=== PATIENT | female | born 1940 | race Caucasian/White ===

== ENCOUNTER 2019-08-07 16:36 | Inpatient (IN) | payer MEDICARE ==
[~2019-08-07] VITALS: Ht 172.7 cm; Wt 111.4 kg
[~2019-08-07 16:36] MED LIST: ASPI-515 PO; ATOR10TA9 PO; CLOP75TA PO
--- NOTE | 2019-08-07 17:32 | NUR ---
TICO. REPORT RECEIVED FROM EMS. PT'S FAMILY MEMBER NOTICED PT HAS STROKE LIKE SYMPTOMS SINCE 12PM TODAY. PT STATES " I DON'T FEEL RIGHT ABOUT 2 DAYS." FACIAL SYMMETRICAL, NEURO INTACT. PT HAS EXPRESSIVE APHASIA. HX OF STROKE 3 YEARS AGO. RIGHT SIDED WEAKNESS D/T STROKE. PT'S AOX2. RESPS EVEN AND UNLABORED. EDMD AT BEDSIDE TO EVALUATE AT THIS TIME.
--- NOTE | 2019-08-07 17:33 | NUR ---
PT AMB TO BR WITH STEADY GAIT.
--- NOTE | 2019-08-07 17:53 | NUR ---
EKG DONE AT BEDSIDE BY EMT.
--- NOTE | 2019-08-07 17:56 | NUR ---
PT MEDICATED PER EMAR. PT TOLERATED WELL.
[2019-08-07] MEDS ORDERED: SODIUM CHLORIDE FLUSH 10ML SYR IVF ONE (18:00)
--- NOTE | 2019-08-07 18:11 | NUR ---
PT'S STRAIGHT CATH'D USING STERILE TECHNIQUE. PT TOLERATED WELL. THIS RN WALKED TO LAB FOR UA.
[2019-08-07 18:13] LABS: ALANINE AMINOTRANSFERASE 13 U/L (12-78); ALBUMIN 3.5 g/dL (3.4-5.0); ANION GAP 7 mmol/L (5-15); CALCIUM 8.3 mg/dL (8.5-10.1); CHLORIDE 111 mmol/L (98-107)
[2019-08-07 18:15] LABS: ALKALINE PHOSPHATASE 95 U/L (45-117); BILIRUBIN,TOTAL 0.5 mg/dL (0.2-1.0); CREATININE 0.87 mg/dL (0.55-1.02); TOTAL PROTEIN 7.3 g/dL (6.4-8.2)
[2019-08-07 18:17] LABS: MICROSCOPIC NOT IND
[2019-08-07 18:21] LABS: CULTURE INDICATED? NO
[2019-08-07 18:35] LABS: MEAN CORPUSCULAR HEMOGLOBIN 23.9 pg (27.0-34.8); MEAN CORPUSCULAR HGB CONC 31.2 g/dL (32.4-35.8); MEAN CORPUSCULAR VOLUME 76.7 fL (80-100); MEAN PLATELET VOLUME 8.4 fL (7.4-10.4); PLATELET COUNT 389 x10^3/uL (130-400); RED BLOOD COUNT 4.66 x10^6/uL (3.82-5.3); RED CELL DISTRIBUTION WIDTH 17.9 % (9.6-15.2)
[2019-08-07 18:36] LABS: BASOPHILS # (AUTO) 0.02 x10^3/uL (0-0.1); BASOPHILS % (AUTO) 0 % (0-1); EOSINOPHILS # (AUTO) 0.36 x10^3/uL (0-0.4); EOSINOPHILS % (AUTO) 5 % (1-7); LYMPHOCYTES # (AUTO) 1.48 x10^3/uL (1-3.4); LYMPHOCYTES % (AUTO) 19 % (22-44); MD MORPH REVIEW ONLY; MONOCYTES # (AUTO) 0.55 x10^3/uL (0.2-0.8); MONOCYTES % (AUTO) 7 % (2-9); NEUTROPHILS # (AUTO) 5.48 x10^3/uL (1.8-6.8); NEUTROPHILS % (AUTO) 70 % (42-75)
[2019-08-07 18:37] LABS: ANISOCYTOSIS 1+; HYPOCHROMIA 1+; MICROCYTOSIS 1+; OVALOCYTES 1+
[2019-08-07 18:38] LABS: <PLATELET ESTIMATE> ADEQUATE; <PLT MORPHOLOGY> NORMAL PLT MORPH
--- NOTE | 2019-08-07 18:51 | NUR ---
REPORT GIVEN TO DAVID BUTCHER.
[2019-08-07] MEDS ORDERED: LABETALOL 5MG/ML, 20ML IVPush ONE (19:30)
[2019-08-07] MEDS ORDERED: LABETALOL 5MG/ML, 20ML ONE (19:58)
[2019-08-07] MEDS ORDERED: ASPIRIN 81 MG TABLET CHEW ONE (19:59)
[2019-08-07] MEDS ORDERED: SODIUM CHLORIDE FLUSH 10ML SYR IVF PRN (20:00)
[2019-08-07] MEDS ORDERED: ASPIRIN 81 MG TABLET CHEW PO ONE (20:00)
[2019-08-07] MEDS ORDERED: BISACODYL 10 MG SUPP PR PRN (21:30)
[2019-08-07] MEDS ORDERED: TRAZODONE 50MG TABLET PO PRN (21:30)
[2019-08-07] MEDS ORDERED: ONDANSETRON 2MG/ML, 2ML IVPush PRN (21:30)
[2019-08-07] MEDS ORDERED: ACETAMINOPHEN 650 MG/20.3 ML UDC PO PRN (21:30)
--- NOTE | 2019-08-07 21:52 | NUR ---
PT RESTING IN BED IN SITTING POSITION, PT FAMILY WENT HOME. PT VITALS ARE BEING MONITORED. PT DENIED ANY NEEDS AT THIS TIME.
[2019-08-07 23:03] VITALS: BP 149/77
[2019-08-07] MEDS: ATORVASTATIN 40 MG TABLET PO SCH (23:10)
[2019-08-07] MEDS ORDERED: OMNIPAQUE 350 MG/ML, 100ML BOTTLE ONE (23:16)
[2019-08-08 04:00] VITALS: BP 130/62
[2019-08-08 05:41] LABS: BASOPHILS # (AUTO) 0.05 x10^3/uL (0-0.1); BASOPHILS % (AUTO) 1 % (0-1); EOSINOPHILS # (AUTO) 0.31 x10^3/uL (0-0.4); EOSINOPHILS % (AUTO) 4 % (1-7); LYMPHOCYTES # (AUTO) 1.33 x10^3/uL (1-3.4); LYMPHOCYTES % (AUTO) 18 % (22-44); MD NO; MEAN CORPUSCULAR HGB CONC 31.6 g/dL (32.4-35.8); MEAN CORPUSCULAR VOLUME 76.1 fL (80-100); MEAN PLATELET VOLUME 8.9 fL (7.4-10.4); MONOCYTES # (AUTO) 0.69 x10^3/uL (0.2-0.8); MONOCYTES % (AUTO) 9 % (2-9); NEUTROPHILS # (AUTO) 4.98 x10^3/uL (1.8-6.8); NEUTROPHILS % (AUTO) 68 % (42-75); PLATELET COUNT 359 x10^3/uL (130-400); RED BLOOD COUNT 4.25 x10^6/uL (3.82-5.3); RED CELL DISTRIBUTION WIDTH 17.4 % (9.6-15.2)
[2019-08-08 05:49] LABS: ANION GAP 5 mmol/L (5-15); CALCIUM 8.1 mg/dL (8.5-10.1); CHLORIDE 111 mmol/L (98-107); CREATININE 0.84 mg/dL (0.55-1.02)
[2019-08-08 05:50] LABS: CHOLESTEROL, TOTAL 149 mg/dL (140-239); TRIGLYCERIDES 102 mg/dL (50-200); VLDL CHOLESTEROL 20 mg/dL (0-25)
[2019-08-08 05:52] LABS: CHOL/HDL RATIO 3.2; HDL CHOL % 31 % (28-40); HDL CHOLESTEROL (DIRECT) 46 mg/dL (40-60); LDL CHOLESTEROL,CALCULATED 83 mg/dL (54-169); LDL/HDL RATIO 1.8 (0.5-3.0)
[2019-08-08 08:19] VITALS: BP 122/73
[2019-08-08] MEDS: ASPIRIN 81 MG TABLET CHEW PO/NG SCH (08:48)
[2019-08-08 12:03] VITALS: BP 152/77
[2019-08-08 17:16] VITALS: BP 158/70
[2019-08-08 19:41] VITALS: BP 146/76
[2019-08-08] MEDS: ATORVASTATIN 40 MG TABLET PO SCH (20:10)
[2019-08-08] MEDS: LISINOPRIL 5 MG TABLET PO SCH (22:02)
[2019-08-08 23:55] VITALS: BP 169/66
[2019-08-09 04:20] VITALS: BP 138/76
[2019-08-09 05:15] LABS: BASOPHILS # (AUTO) 0.06 x10^3/uL (0-0.1); BASOPHILS % (AUTO) 1 % (0-1); EOSINOPHILS # (AUTO) 0.35 x10^3/uL (0-0.4); EOSINOPHILS % (AUTO) 4 % (1-7); LYMPHOCYTES # (AUTO) 1.79 x10^3/uL (1-3.4); LYMPHOCYTES % (AUTO) 21 % (22-44); MD NO; MEAN CORPUSCULAR HGB CONC 31.4 g/dL (32.4-35.8); MEAN CORPUSCULAR VOLUME 76.5 fL (80-100); MEAN PLATELET VOLUME 8.4 fL (7.4-10.4); MONOCYTES # (AUTO) 0.75 x10^3/uL (0.2-0.8); MONOCYTES % (AUTO) 9 % (2-9); NEUTROPHILS # (AUTO) 5.62 x10^3/uL (1.8-6.8); NEUTROPHILS % (AUTO) 66 % (42-75); PLATELET COUNT 386 x10^3/uL (130-400); RED BLOOD COUNT 4.53 x10^6/uL (3.82-5.3); RED CELL DISTRIBUTION WIDTH 17.9 % (9.6-15.2)
[2019-08-09 05:24] LABS: ANION GAP 8 mmol/L (5-15); CALCIUM 8.5 mg/dL (8.5-10.1); CHLORIDE 111 mmol/L (98-107)
[2019-08-09 05:27] LABS: CREATININE 0.76 mg/dL (0.55-1.02)
[2019-08-09 07:00] VITALS: BP 144/78
[2019-08-09] MEDS: LISINOPRIL 5 MG TABLET PO SCH (09:55)
[2019-08-09] MEDS: ASPIRIN 81 MG TABLET CHEW PO/NG SCH (09:55)
[2019-08-09 13:06] VITALS: BP 136/73
[2019-08-09 16:59] VITALS: BP 154/70
[2019-08-09 20:30] VITALS: BP 167/76
[2019-08-09] MEDS: LISINOPRIL 10 MG TABLET PO SCH (21:20)
[2019-08-09] MEDS: ATORVASTATIN 40 MG TABLET PO SCH (21:20)
[2019-08-10] VITALS: BP 147/83
[2019-08-10 04:00] VITALS: BP 130/74
[2019-08-10 07:33] VITALS: BP 142/70
[2019-08-10] MEDS: ASPIRIN 81 MG TABLET CHEW PO/NG SCH (08:10)
[2019-08-10] MEDS: LISINOPRIL 10 MG TABLET PO SCH (08:10)
[2019-08-10] MEDS ORDERED: LISI-167 PO (11:04)
[2019-08-10] MEDS ORDERED: ATOR40TA78 PO (11:04)
[2019-08-10] MEDS ORDERED: FLU VACC QS2019-20 36MOS UP/PF 0.5 ML IM-VACC ONE (12:30)
== END 2019-08-10 14:10 | disposition home health service (06) | DRG 66 ==
LOC: ED 20:12 → EDIP 20:54 → 4EST 22:45 → DCLOUNGE 08-10 13:50
PROVIDERS: ADMIT Internal Medicine; ATTEND Hospitalist
PROC: 0T9B70Z Drainage of Bladder with Drainage Device, Via Natural or Artificial Opening (ICD-10-PCS; principal; 2019-08-07)
PROC: B3111ZZ Fluoroscopy of Right Brachiocephalic-Subclavian Artery using Low Osmolar Contrast (ICD-10-PCS; 2019-08-07)
PROC: B31G1ZZ Fluoroscopy of Bilateral Vertebral Arteries using Low Osmolar Contrast (ICD-10-PCS; 2019-08-07)
PROC: B3121ZZ Fluoroscopy of Left Subclavian Artery using Low Osmolar Contrast (ICD-10-PCS; 2019-08-07)
PROC: B3181ZZ Fluoroscopy of Bilateral Internal Carotid Arteries using Low Osmolar Contrast (ICD-10-PCS; 2019-08-07)
PROC: B31C1ZZ Fluoroscopy of Bilateral External Carotid Arteries using Low Osmolar Contrast (ICD-10-PCS; 2019-08-07)
PROC: B3151ZZ Fluoroscopy of Bilateral Common Carotid Arteries using Low Osmolar Contrast (ICD-10-PCS; 2019-08-07)
DX: I63.312 Cerebral infarction due to thrombosis of left middle cerebral artery (principal); R47.01 Aphasia; D50.9 Iron deficiency anemia, unspecified; E66.01 Morbid (severe) obesity due to excess calories; I65.22 Occlusion and stenosis of left carotid artery; R23.3 Spontaneous ecchymoses; I16.0 Hypertensive urgency; Z75.1 Person awaiting admission to adequate facility elsewhere; Z86.73 Personal history of transient ischemic attack (TIA), and cerebral infarction without residual deficits; Z68.37 Body mass index [BMI] 37.0-37.9, adult; Z87.891 Personal history of nicotine dependence
CPT/HCPCS: 36415; 70450; 70496; 70498; 70551; 71045; 80048; 80053; 80061; 81003; 83880; 85025; 90686; 93005; 93306; 99285; G0378; Q9967; 92523-GN